=== PATIENT | male | born 1995 | race Caucasian/White ===

== ENCOUNTER 2016-09-25 11:38 | Emergency (ER) | payer SELFPAY ==
[~2016-09-25] VITALS: Ht 195.6 cm; Wt 94.5 kg
[~2016-09-25 11:38] MED LIST: TOPI25TA32 PO
[2016-09-25 11:41] VITALS: BP 121/81
[2016-09-25 13:02] LABS: BLOOD UREA NITROGEN 14 mg/dL (7-18)
[2016-09-25] MEDS ORDERED: AMOXICILLIN/CLAV 875-125MG TABLET PO ONE (15:00)
[2016-09-25] MEDS ORDERED: KETOROLAC 30 MG/1 ML IM ONE (15:00)
== END 2016-09-25 16:11 | disposition home or self-care (01) ==
LOC: ED 14:59
DX: J01.00 Acute maxillary sinusitis, unspecified (principal); Z90.89 Acquired absence of other organs
CPT/HCPCS: 36415; 80048; 82040; 85025; 93005

== ENCOUNTER 2017-01-13 10:19 | Emergency (ER) | payer OTHER ==
[~2017-01-13] VITALS: Ht 195.6 cm; Wt 94.2 kg
[2017-01-13 10:26] VITALS: BP 133/76
== END 2017-01-13 11:21 | disposition home or self-care (01) ==
LOC: ED 11:13
DX: J20.8 Acute bronchitis due to other specified organisms (principal)
CPT/HCPCS: 99283

== ENCOUNTER 2017-01-29 14:00 | Emergency (ER) | payer OTHER ==
[~2017-01-29] VITALS: Ht 195.6 cm; Wt 91.8 kg
[2017-01-29 14:02] VITALS: BP 129/72
== END 2017-01-29 14:26 | disposition home or self-care (01) ==
LOC: ED 14:20
DX: K08.89 Other specified disorders of teeth and supporting structures (principal)
CPT/HCPCS: 99283

== ENCOUNTER 2017-02-18 12:53 | Emergency (ER) | payer SELFPAY ==
[~2017-02-18] VITALS: Ht 195.6 cm; Wt 92.0 kg
[2017-02-18 12:58] VITALS: BP 123/69
[2017-02-18] MEDS ORDERED: KETOROLAC 30 MG/1 ML ONE (13:29)
[2017-02-18] MEDS ORDERED: KETOROLAC 30 MG/1 ML IM ONE (13:30)
== END 2017-02-18 14:03 | disposition home or self-care (01) ==
LOC: ED 13:57
DX: S89.91XA Unspecified injury of right lower leg, initial encounter (principal); M25.461 Effusion, right knee; X50.1XXA Overexertion from prolonged static or awkward postures, initial encounter; Y93.89 Activity, other specified; Y92.89 Other specified places as the place of occurrence of the external cause; Y99.8 Other external cause status
CPT/HCPCS: 29505; 73564; 96372; 99284; J1885